=== PATIENT | male | born 1970 | race Caucasian/White ===

== ENCOUNTER → 2017-03-24 | Outpatient (CLI) | payer MEDICAID ==
--- NOTE | 2017-03-24 12:02 | RADRPT ---
PROCEDURE: Ultrasound of the left inguinal region. CLINICAL INDICATION: Palpable lesion in the left inguinal region. TECHNIQUE: High-resolution sonography of the left inguinal region at the site of the palpable lesi on was performed in the axial and sagittal planes with and without Valsalva maneuver. COMPARISON: None FINDINGS: There is no fluid collection or mass. There is a left inguinal hernia measuring 5.2 x 1.7 cm in cranial caudal and AP dimensions. The anusha ia contains only mesenteric fat. There is no herniated bowel. IMPRESSION: 1. Left inguinal hernia containing only mesenteric fat. RPTAT: QQ .Pranav Cole MD, MD Date Time Electronically viewed and signed by .Pranav Cole MD, MD on 03/24/2017 12:02 .R/
== END | disposition home or self-care (01) ==
LOC: U/S 08:43
PROVIDERS: ATTEND Physician Assistant
DX: K40.90 Unilateral inguinal hernia, without obstruction or gangrene, not specified as recurrent (principal)
CPT/HCPCS: 76536